=== PATIENT | female | born 1970 | race Caucasian/White ===

== ENCOUNTER 2017-08-18 07:08 | Inpatient (IN) | payer SELFPAY ==
[~2017-08-18] VITALS: Ht 160 cm; Wt 65.8 kg
[2017-08-18] MEDS ORDERED: ONDANSETRON HCL 4MG/2ML VIAL IV STA (07:49)
[2017-08-18] MEDS ORDERED: KETOROLAC 30MG/ML VIAL IV STA (07:49)
[2017-08-18] MEDS ORDERED: SODIUM CHLORIDE 0.9% 1,000 ML IV ONE (07:49)
[2017-08-18] MEDS ORDERED: FAMOTIDINE 20MG/2ML VIAL IV STA (07:49)
[2017-08-18 08:26] LABS: CARBON DIOXIDE 25 mEq/L (21-32); CHLORIDE 103 mEq/L (98-107)
[2017-08-18 08:31] LABS: HEMATOCRIT. 37.4 % (36.0-48.0); HEMOGLOBIN. 12.3 g/dL (12.0-16.0); MEAN CORPUSCULAR HEMOGLOBIN 29.4 pg (28.0-32.0); MEAN CORPUSCULAR VOLUME 89.4 fL (81.0-99.0); MEAN PLATELET VOLUME 9.2 fl (7.4-10.4); PLATELET 293 x1000/uL (130-400); RED BLOOD CELL COUNT 4.18 mill/uL (4.2-5.4); RED CELL DISTRIBUTION WIDTH 13.8 % (11.6-14.6)
[2017-08-18 08:58] LABS: PLATELET ESTIMATE NORMAL
[2017-08-18 09:45] LABS: CLARITY URINE CLEAR (CLEAR); COLOR URINE YELLOW (YELLOW); KETONES URINE NEGATIVE (NEGATIVE); LEUKOCYTE ESTERASE URINE TRACE (NEGATIVE); NITRITE URINE NEGATIVE (NEGATIVE); OCCULT BLOOD URINE TRACE (NEGATIVE); PH URINE 7.5 (4.5-8.0); PROTEIN URINE NEGATIVE (NEGATIVE); SPECIFIC GRAVITY URINE 1.019 (1.005-1.030); UROBILINOGEN URINE 0.2 E.U./dL (0.2-1.0)
[2017-08-18] MEDS ORDERED: PIPERACILLIN/TAZ 3.375G PREMIX 50 ML IV ONE (11:00)
[2017-08-18] MEDS ORDERED: PIPERACILLIN/TAZOBACTAM 3.375GM/50ML PREMIX IV ONE (11:00)
[2017-08-18] MEDS ORDERED: MAGNESIUM/ALUMINUM HYDROXIDE/SIMETHICONE 30ML UDC PO PRN (12:30)
[2017-08-18] MEDS ORDERED: ONDANSETRON HCL 4MG/2ML VIAL IV PRN (12:30)
[2017-08-18] MEDS ORDERED: IPRATROPIUM/ALBUTEROL 0.5-3(2.5)MG/3ML NEB INH PRN (12:30)
[2017-08-18] MEDS ORDERED: LORAZEPAM 0.5MG TABLET PO PRN (12:30)
[2017-08-18] MEDS ORDERED: DIPHENHYDRAMINE 50MG/ML VIAL IV PRN (12:30)
[2017-08-18] MEDS ORDERED: NITROGLYCERIN 0.4MG TABLET SL SL PRN (12:30)
[2017-08-18] MEDS ORDERED: TRAMADOL 50MG TABLET PO PRN (12:30)
[2017-08-18] MEDS ORDERED: GUAIFENESIN 200MG/10ML SUGAR FREE UDC PO PRN (12:30)
[2017-08-18] MEDS ORDERED: CLONIDINE 0.1MG TABLET PO PRN (12:30)
[2017-08-18] MEDS ORDERED: NA PHOS,M-B/NA PHOS,DI-BA ENEMA 118ML PR PRN (12:30)
[2017-08-18] MEDS: KETOROLAC 15MG/ML VIAL IV PRN ×2 (15:27→23:07)
[2017-08-18 15:40] VITALS: BP 115/72
[2017-08-18] MEDS: ENOXAPARIN 40MG/0.4ML SYR SUBCUT SCH (15:56)
[2017-08-18 16:03] VITALS: BP 115/72
[2017-08-18] MEDS: DEXT 5%/0.9% NACL KCL 20MEQ/L 1,000 ML IV SCH (16:53)
[2017-08-18] MEDS: PIPERACILLIN/TAZ 3.375G PREMIX 50 ML IV SCH (20:37)
[2017-08-18] MEDS: FAMOTIDINE 20MG/2ML VIAL IV SCH (20:38)
[2017-08-18] MEDS ORDERED: ZOLPIDEM TARTRATE 5MG TABLET PO PRN (21:00)
[2017-08-19] VITALS: BP 117/69
[2017-08-19] MEDS: DEXT 5%/0.9% NACL KCL 20MEQ/L 1,000 ML IV SCH ×2 (03:29→14:03)
[2017-08-19] MEDS: PIPERACILLIN/TAZ 3.375G PREMIX 50 ML IV SCH ×3 (03:29→20:54)
[2017-08-19 04:00] VITALS: BP 116/68
[2017-08-19 06:19] LABS: BASOPHILS % 0.4 % (0.0-2.0); EOSINOPHILS % 0.6 % (0.0-5.0); HEMATOCRIT. 36.7 % (36.0-48.0); HEMOGLOBIN. 11.7 g/dL (12.0-16.0); LYMPHOCYTES % 8.8 % (20.0-50.0); MEAN CORPUSCULAR HEMOGLOBIN 29.4 pg (28.0-32.0); MEAN CORPUSCULAR VOLUME 92.6 fL (81.0-99.0); MEAN PLATELET VOLUME 9.7 fl (7.4-10.4); MONOCYTES % 5.6 % (2.0-8.0); NEUTROPHILS % 84.6 % (40.0-76.0); PLATELET 198 x1000/uL (130-400); RED BLOOD CELL COUNT 3.97 mill/uL (4.2-5.4); RED CELL DISTRIBUTION WIDTH 14.3 % (11.6-14.6)
[2017-08-19 06:55] LABS: CARBON DIOXIDE 22 mEq/L (21-32); CHLORIDE 109 mEq/L (98-107)
[2017-08-19 07:55] VITALS: BP 104/69
[2017-08-19] MEDS: DOCUSATE SODIUM 100MG CAPSULE PO PRN (08:16)
[2017-08-19] MEDS: KETOROLAC 15MG/ML VIAL IV PRN ×3 (08:17→22:16)
[2017-08-19] MEDS: FAMOTIDINE 20MG/2ML VIAL IV SCH ×2 (08:18→20:55)
[2017-08-19 12:00] VITALS: BP 109/71
[2017-08-19] MEDS: ENOXAPARIN 40MG/0.4ML SYR SUBCUT SCH (15:09)
[2017-08-19 16:00] VITALS: BP 109/71
[2017-08-19 20:00] VITALS: BP 109/73
[2017-08-20] VITALS: BP 108/71
[2017-08-20] MEDS: PIPERACILLIN/TAZ 3.375G PREMIX 50 ML IV SCH ×3 (03:34→22:18)
[2017-08-20] MEDS: ACETAMINOPHEN 325MG TABLET PO PRN ×2 (03:41→18:48)
[2017-08-20] MEDS: DOCUSATE SODIUM 100MG CAPSULE PO PRN (03:41)
[2017-08-20 04:00] VITALS: BP 117/73
[2017-08-20] MEDS: DEXT 5%/0.9% NACL KCL 20MEQ/L 1,000 ML IV SCH ×3 (06:53→22:19)
[2017-08-20 07:11] LABS: BASOPHILS % 0.5 % (0.0-2.0); EOSINOPHILS % 0.5 % (0.0-5.0); HEMATOCRIT. 32.5 % (36.0-48.0); HEMOGLOBIN. 10.7 g/dL (12.0-16.0); LYMPHOCYTES % 8.9 % (20.0-50.0); MEAN CORPUSCULAR HEMOGLOBIN 29.9 pg (28.0-32.0); MEAN CORPUSCULAR VOLUME 90.8 fL (81.0-99.0); MONOCYTES % 4.9 % (2.0-8.0); NEUTROPHILS % 85.2 % (40.0-76.0); PLATELET 225 x1000/uL (130-400); RED BLOOD CELL COUNT 3.58 mill/uL (4.2-5.4); RED CELL DISTRIBUTION WIDTH 13.6 % (11.6-14.6)
[2017-08-20] MEDS: KETOROLAC 15MG/ML VIAL IV PRN ×3 (08:37→23:51)
[2017-08-20] MEDS: FAMOTIDINE 20MG/2ML VIAL IV SCH ×2 (08:37→20:28)
[2017-08-20 08:42] LABS: CARBON DIOXIDE 22 mEq/L (21-32); CHLORIDE 107 mEq/L (98-107)
[2017-08-20] MEDS: ENOXAPARIN 40MG/0.4ML SYR SUBCUT SCH (15:19)
[2017-08-20 20:00] VITALS: BP 128/79
[2017-08-21] VITALS: BP 116/75
[2017-08-21 04:00] VITALS: BP 115/61
[2017-08-21] MEDS: PIPERACILLIN/TAZ 3.375G PREMIX 50 ML IV SCH ×3 (05:47→21:11)
[2017-08-21] MEDS: KETOROLAC 15MG/ML VIAL IV PRN (05:48)
[2017-08-21] MEDS ORDERED: SKIN ADHESIVE 0.7 GM EA TOP ONE (07:19)
[2017-08-21] MEDS ORDERED: BUPIVACAINE HCL 0.5% (5MG/ML) 50ML ONE (07:19)
[2017-08-21 08:00] VITALS: BP 115/74
[2017-08-21] MEDS ORDERED: FENTANYL CITRATE/PF 50MCG/ML 2ML VIAL ONE (08:08)
[2017-08-21] MEDS ORDERED: CEFAZOLIN SODIUM 1000MG/VIAL ONE (08:08)
[2017-08-21] MEDS ORDERED: PROPOFOL 200MG/20ML VIAL IV ONE (08:08)
[2017-08-21] MEDS ORDERED: MIDAZOLAM HCL 2 MG/2 ML VIAL ONE (08:09)
[2017-08-21] MEDS ORDERED: SUCCINYLCHOLINE CHLORIDE 200MG/10ML VIAL IV ONE (08:11)
[2017-08-21] MEDS ORDERED: HYDROCODONE/ACETAMINOPHEN 5/325MG TABLET PO PRN ×2 (08:15)
[2017-08-21] MEDS ORDERED: MORPHINE SULFATE 4 MG/ML CPJ (NOT FOR IM USE) IV PRN (08:15)
[2017-08-21] MEDS ORDERED: ACETAMINOPHEN 325MG TABLET PO PRN (08:15)
[2017-08-21] MEDS ORDERED: ONDANSETRON HCL 4MG/2ML VIAL IV PRN ×2 (08:15→08:30)
[2017-08-21] MEDS ORDERED: ROCURONIUM BROMIDE 10MG/ML VIAL 5ML IV ONE (08:22)
[2017-08-21] MEDS ORDERED: MEPERIDINE HCL/PF 25MG/ML CPJ IV PRN (08:30)
[2017-08-21] MEDS ORDERED: LABETALOL HCL 20MG/4ML CARPUJECT IV PRN (08:30)
[2017-08-21] MEDS ORDERED: ONDANSETRON HCL 4MG/2ML VIAL ONE (09:09)
[2017-08-21] MEDS ORDERED: METOCLOPRAMIDE HCL 10MG/2ML VIAL ONE (09:09)
[2017-08-21] MEDS ORDERED: GLYCOPYRROLATE 0.2 MG/ML 2ML VIAL ONE (09:12)
[2017-08-21] MEDS ORDERED: NEOSTIGMINE METHYLSULFATE 1MG/ML 10 ML VIAL ONE (09:12)
[2017-08-21] MEDS: HYDROMORPHONE HCL/PF 2MG/ML CPJ IV PRN ×2 (09:57→10:03)
[2017-08-21 12:00] VITALS: BP 110/64
[2017-08-21] MEDS: FAMOTIDINE 20MG/2ML VIAL IV SCH ×2 (12:26→21:11)
[2017-08-21] MEDS: DEXT 5%/0.45% NACL KCL 20MEQ/L 1,000 ML IV SCH (13:32)
[2017-08-21] MEDS: MORPHINE SULFATE 2 MG/ML CPJ (NOT FOR IM USE) IV PRN ×2 (14:40→21:11)
[2017-08-21] MEDS: DEXT 5%/0.9% NACL KCL 20MEQ/L 1,000 ML IV SCH (15:00)
[2017-08-21 16:00] VITALS: BP 120/60
[2017-08-21 20:00] VITALS: BP 111/52
[2017-08-21] MEDS: SODIUM CHLORIDE 0.9% INJ 3ML FLUSH IVF SCH (21:46)
[2017-08-22] VITALS (7 sets, daily range): BP systolic 108–123; BP diastolic 68–79
[2017-08-22] MEDS: MORPHINE SULFATE 2 MG/ML CPJ (NOT FOR IM USE) IV PRN ×3 (02:42→13:38)
[2017-08-22] MEDS: DEXT 5%/0.45% NACL KCL 20MEQ/L 1,000 ML IV SCH ×2 (06:17→16:00)
[2017-08-22] MEDS: PIPERACILLIN/TAZ 3.375G PREMIX 50 ML IV SCH ×2 (06:18→14:38)
[2017-08-22] MEDS: SODIUM CHLORIDE 0.9% INJ 3ML FLUSH IVF SCH ×2 (06:18→14:38)
[2017-08-22] MEDS: FAMOTIDINE 20MG/2ML VIAL IV SCH (09:51)
[2017-08-22] MEDS: ENOXAPARIN 40MG/0.4ML SYR SUBCUT SCH ×2 (14:38→16:58)
== END 2017-08-22 17:45 | disposition home or self-care (01) | DRG 263 ==
LOC: ER 07:08 → 6EST 11:57 → ENRESERV 14:04
PROVIDERS: ADMIT Internal Medicine; ATTEND Internal Medicine
PROC: 0FT44ZZ Resection of Gallbladder, Percutaneous Endoscopic Approach (ICD-10-PCS; principal; 2017-08-21 08:00)
DX: K80.00 Calculus of gallbladder with acute cholecystitis without obstruction (principal); E44.0 Moderate protein-calorie malnutrition; K76.0 Fatty (change of) liver, not elsewhere classified; K82.8 Other specified diseases of gallbladder; Z68.25 Body mass index [BMI] 25.0-25.9, adult
CPT/HCPCS: 36415; 76705; 78227; 80053; 81001; 81025; 83036; 83690; 85025; 87040; 88304; 93970; 96361; 96372; 96374; 96375; 96376; 99285; A9537; J0330; J0690; J1170; J1650; J1885; J2250; J2270; J2405; J2543; J2704; J2710; J2765; J3010; J3490; J7030